=== PATIENT | female | born 1955 | race African-American/Black ===

== ENCOUNTER 2018-12-20 09:04 | Emergency (ER) | payer OTHER, BC ==
[~2018-12-20] VITALS: Ht 154.9 cm; Wt 45.4 kg
[2018-12-20 10:05] LABS: ABSOLUTE NEUTROPHILS 4.3 thou/uL (1.4-8.2); BASOPHILS 0.4 % (0.0-2.0); EOSINOPHILS 3.1 % (0.0-3.0); HEMATOCRIT 41.6 % (37.0-47.0); HEMOGLOBIN 13.6 gm/dL (12.0-15.0); LYMPHOCYTES 20.3 % (24.0-44.0); MCHC 32.8 g/dL (28.0-37.0); MCV 85.4 fL (80.0-100.0); MONOCYTES 4.4 % (1.0-8.0); PLATELET COUNT 194 thou/uL (150-400); POLYS 71.8 % (36.0-66.0); RBC 4.87 mil/uL (4.20-5.00); RDW 13.4 % (10.5-14.5)
[2018-12-20 10:05] LABS: URINE BILIRUBIN NEGATIVE (Negative); URINE BLOOD TRACE (Negative); URINE CLARITY CLEAR; URINE COLOR YELLOW; URINE GLUCOSE-RANDOM* NEGATIVE (Negative); URINE KETONES NEGATIVE (Negative); URINE LEUKOCYTES-REFLEX NEGATIVE (Negative); URINE NITRITE-REFLEX NEGATIVE (Negative); URINE PROTEIN (DIPSTICK) 2+ (Negative); URINE UROBILINOGEN 0.2 E.U./dl (0.2-1.0)
[2018-12-20 10:10] LABS: ANION GAP 8 mmol/L (7-16); BUN 23 mg/dL (7-18); CALCIUM 9.8 mg/dL (8.5-10.1); CHLORIDE 104 mmol/L (98-107); CO2 27 mmol/L (21-32); CREATININE 1.2 mg/dL (0.6-1.0); GLUCOSE 130 mg/dL (74-106); POTASSIUM 3.4 mmol/L (3.5-5.1); SODIUM 139 mmol/L (136-145)
[2018-12-20 10:18] LABS: TROPONIN-I <0.06 ng/mL (<0.06)
[2018-12-20 10:30] LABS: SQUAMOUS 0-3 Few /LPF (0-3)
[2018-12-20 10:31] LABS: BACTERIA-REFLEX 1-9 Few /HPF (None Seen); URINE RBC 0-2 Rare /HPF (0-2); URINE WBC-REFLEX 0-5 Rare /HPF (0-5)
[2018-12-20] MEDS ORDERED: WAL-DRAM 225 MG PO (11:50)
[2018-12-20] MEDS ORDERED: HYDROCHLOROTHIA25 M2 PO (11:55)
[2018-12-20 12:32] VITALS: BP 218/119
--- NOTE | 2018-12-21 08:32 | EKG ---
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 ��������������������������������������������� 12/21/18 0832 0934 0934 Jake Catalan MD, FACC /EPI
== END 2018-12-20 12:34 | disposition home or self-care (01) ==
LOC: ER 09:04
PROVIDERS: Emergency Medicine
DX: R42 Dizziness and giddiness (principal); R31.29 Other microscopic hematuria; I10 Essential (primary) hypertension

== ENCOUNTER 2019-06-16 10:27 | Emergency (ER) | payer OTHER, BC ==
[~2019-06-16] VITALS: Ht 154.9 cm; Wt 49.0 kg
[~2019-06-16 10:27] MED LIST: HYDROCHLOROTHIA25 M2 PO; WAL-DRAM 225 MG PO
[2019-06-16] MEDS ORDERED: TOPROL XL25 MG PO (10:39)
--- NOTE | 2019-06-16 12:01 | EKG ---
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 : 1955 Requested By: Mary Barnes Order Number: [id number] MD: Jake Catalan Measurements Intervals [place] Rate: 105 P: 62 [place]: 190 QRS: 42 QRSD: 87 T: 22 QT: 340 QTc: 450 Interpretive Statements Sinus tachycardia Otherwise normal Compared to ECG 12/20/2018 09:34:33 No significant change was found Electronically Signed On 06-16-2019 12:01:15 CDT by Jake Catalan [email or web address] ��������������������������������������������� <ELECTRONICALLY SIGNED> ���������������������������������������� By: Jake Catalan MD, [facility] ��������������������������������������������� 06/16/19 1201 1029 1029 Jake Catalan MD, FACC /EPI
[2019-06-16 12:56] VITALS: BP 168/84
== END 2019-06-16 13:19 | disposition home or self-care (01) ==
LOC: ER 10:27
DX: I10 Essential (primary) hypertension (principal)